=== PATIENT | male | born 1945 | race Caucasian/White ===

== ENCOUNTER 2024-01-18 00:37 | Inpatient (IN) | payer MEDICAID ==
[2024-01-18] VITALS (38 sets, daily range): BP systolic 96–140; BP diastolic 44–69; PULSE 67–136; RESP 20–22; TEMP 98.2–98.4
[~2024-01-18] VITALS: Ht 167.6 cm; Wt 72.6 kg
[~2024-01-18 00:37] MED LIST: ASPI-1497 MT; CLOP-31 MT; COR3 MT; FURO-151 MT; LINA5TAB MT; LIP40 MT; LOSA1TAB37 MT; METF-414 PO; TAMS-11 PO
[2024-01-18] MEDS: NOREPINEPHRINE 8MG/250ML PMX 250 ML IV PRN (01:12)
[2024-01-18] MEDS ORDERED: FENTANYL 2500MCG/250ML PMX 250 ML IV ONE (01:15)
[2024-01-18] MEDS ORDERED: MIDAZOLAM 100MG/100ML PMX 100 ML IV PRN (01:15)
[2024-01-18 01:18] LABS: HEMATOCRIT. 44.8 % (42.0-52.0); HEMOGLOBIN. 14.6 g/dL (14.0-18.0); MEAN CORPUSCULAR HEMOGLOBIN 29.9 pg (28.0-32.0); MEAN CORPUSCULAR HGB CONC 32.7 g/dL (31.0-37.0); MEAN CORPUSCULAR VOLUME 91.6 fL (80.0-94.0); MEAN PLATELET VOLUME 9.5 fl (7.4-10.4); PLATELET 157 x1000/uL (130-400); RED BLOOD CELL COUNT 4.89 mill/uL (4.7-6.1); RED CELL DISTRIBUTION WIDTH 15.2 % (11.6-14.6); WHITE BLOOD COUNT 16.7 x1000/uL (4.5-11.0)
[2024-01-18 01:20] LABS: CHLORIDE 106 mEq/L (98-107); POTASSIUM 3.4 mEq/L (3.5-5.1); SODIUM 142 mEq/L (136-145)
[2024-01-18 01:21] LABS: CALCIUM 9.6 mg/dL (8.7-10.4); CARBON DIOXIDE 27 mEq/L (21-32)
[2024-01-18] MEDS: FENTANYL CITRATE 2,500 MCG in SODIUM CHLORIDE 0.9% 200 ML IV PRN (01:24)
[2024-01-18 01:26] LABS: GLUCOSE 233 mg/dL (70-105); UREA NITROGEN BLOOD 25 mg/dL (9-23)
[2024-01-18 01:27] LABS: TROPONIN I HIGH SENSITIVITY 6 ng/L (3.0-53)
[2024-01-18 01:28] LABS: ALANINE AMINOTRANSFERASE 89 IU/L (10-49); ALBUMIN 4.3 g/dL (3.2-4.8); ASPARTATE AMINOTRANSFERASE 94 IU/L (<34); BILIRUBIN TOTAL 0.8 mg/dL (0.1-1.0)
[2024-01-18 01:33] LABS: CREATININE 1.9 mg/dL (0.6-1.3)
[2024-01-18] MEDS: MIDAZOLAM 100MG/100ML PMX 100 ML IV PRN (01:45)
[2024-01-18 01:47] LABS: DIFFERENTIAL COMMENT 1
[2024-01-18 02:29] LABS: PLATELET ESTIMATE NORMAL
[2024-01-18] MEDS ORDERED: CEFEPIME 2GM IN DEXT 5% 100ML IV NR (02:30)
[2024-01-18] MEDS: VANCOMYCIN 1G PREMIX 200 ML IV SCH ×2 (02:35→06:22)
[2024-01-18 03:11] LABS: BG BASE EXCESS -5.5 mmol/L (-2.0-2.0); BG CARBOXYHEMOGLOBIN 0.1 % (0.5-1.5); BG DEOXYHEMOGLOBIN 0.2 % (0.0-5.0); BG FRACTION INSPIRED OXYGEN 100; BG HCO3 ACT 22.5 mmol/L (22.0-26.0); BG METHEMOGLOBIN 0.6 % (0.0-1.5); BG OXYGEN SATURATION 99.8 % (92.0-98.5); BG OXYHEMOGLOBIN 99.1 % (94.0-97.0); BG PCO2 53.8 mmHg (35.0-45.0); BG PO2 501.2 mmHg (75.0-100.0); BG SAMPLE SITE RIGHT RADIAL; BG TOTAL HEMOGLOBIN 15.5 g/dL (12.0-18.0); BG VENT MODE VENT - AC
[2024-01-18] MEDS: CEFEPIME 2GM/100ML 100 ML IV NR (05:07)
[2024-01-18] MEDS ORDERED: ACETAMINOPHEN 650MG/20.3ML UDC GT PRN ×2 (06:15)
[2024-01-18] MEDS ORDERED: CLONIDINE 0.1MG TABLET PO PRN (06:15)
[2024-01-18] MEDS ORDERED: ONDANSETRON HCL 4MG/2ML INJ IV PRN (06:15)
[2024-01-18] MEDS ORDERED: IPRATROPIUM/ALBUTEROL 0.5-3(2.5)MG/3ML NEB HHN PRN (06:15)
[2024-01-18 06:49] LABS: BG BASE EXCESS -2.7 mmol/L (-2.0-2.0); BG CARBOXYHEMOGLOBIN 0.3 % (0.5-1.5); BG DEOXYHEMOGLOBIN 1.4 % (0.0-5.0); BG FRACTION INSPIRED OXYGEN 40; BG HCO3 ACT 21.8 mmol/L (22.0-26.0); BG METHEMOGLOBIN 0.5 % (0.0-1.5); BG OXYGEN SATURATION 98.6 % (92.0-98.5); BG OXYHEMOGLOBIN 97.8 % (94.0-97.0); BG PCO2 37.1 mmHg (35.0-45.0); BG PH 7.387 (7.350-7.450); BG PO2 118.1 mmHg (75.0-100.0); BG SAMPLE SITE RIGHT RADIAL; BG TOTAL HEMOGLOBIN 14.9 g/dL (12.0-18.0); BG VENT MODE VENT - AC
[2024-01-18] MEDS: PIPERACILLIN/TAZO 3.375G/50ML 50 ML IV SCH (08:20)
[2024-01-18] MEDS: PANTOPRAZOLE SODIUM 40 MG/VIAL IV SCH (09:24)
[2024-01-18 10:50] LABS: CREATINE KINASE 74 IU/L (46-171)
[2024-01-18 11:25] LABS: TRIGLYCERIDE 138 mg/dL (0-150)
[2024-01-18 11:26] LABS: LDL CHOLESTEROL 54 mg/dL (5-100)
[2024-01-18 11:27] LABS: CHOLESTEROL 100 mg/dL (<200); HDL CHOLESTEROL 34 mg/dL (>55); PHOSPHORUS 2.8 mg/dL (2.5-4.9)
[2024-01-18 12:08] LABS: CLARITY URINE CLEAR (CLEAR); COLOR URINE YELLOW (YELLOW); GLUCOSE URINE NEGATIVE (NEGATIVE); KETONES URINE NEGATIVE (NEGATIVE); LEUKOCYTE ESTERASE URINE NEGATIVE (NEGATIVE); NITRITE URINE NEGATIVE (NEGATIVE); OCCULT BLOOD URINE NEGATIVE (NEGATIVE); PH URINE 5.5 (4.5-8.0); PROTEIN URINE 1+ (NEGATIVE); SPECIFIC GRAVITY URINE 1.011 (1.005-1.030); UROBILINOGEN URINE 0.2 E.U./dL (0.2-1.0)
[2024-01-18 12:22] LABS: COARSE GRANULAR CASTS URINE 0-5 /lpf; HYALINE CASTS URINE 0-5 /lpf; SQUAMOUS EPITHELIAL CELL URINE RARE /lpf (RARE/1+)
[2024-01-18 12:23] LABS: WBC URINE 0-2 /hpf (0-2)
[2024-01-18 12:24] LABS: BACTERIA URINE TRACE; RBC URINE 0-2 /hpf (0-2)
[2024-01-18] MEDS: ASPIRIN 81MG TABLET NG SCH (12:32)
[2024-01-18] MEDS: CLOPIDOGREL 75MG TABLET PO SCH (12:32)
[2024-01-18 12:58] LABS: HEPATITIS B SURFACE ANTIGEN NEGATIVE (Negative)
[2024-01-18 13:18] LABS: HEPATITIS A AB IGM NEGATIVE (Negative)
[2024-01-18 13:19] LABS: HEPATITIS B CORE AB IGM NEGATIVE (Negative)
[2024-01-18 13:20] LABS: HEPATITIS C AB NON REACTIVE (Neg) (Negative)
[2024-01-18 14:00] LABS: *AMPHETAMINES SCREEN URINE NEGATIVE (NEGATIVE); *BARBITURATES SCREEN URINE NEGATIVE (NEGATIVE); *BENZODIAZEPINES SCREEN URINE PRESUMPTIVE POSITIVE (NEGATIVE); *COCAINE SCREEN URINE NEGATIVE (NEGATIVE)
[2024-01-18 14:01] LABS: CANNABINOID URINE SCREEN NEGATIVE (NEGATIVE); ECSTASY MDMA SCREEN URINE NEGATIVE (NEGATIVE); METHADONE URINE SCREEN NEGATIVE (NEGATIVE); OPIATES URINE SCREEN NEGATIVE (NEGATIVE); PHENCYCLIDINE URINE SCREEN NEGATIVE (NEGATIVE)
[2024-01-18] MEDS: MAGNESIUM 1 G PREMIX 100 ML IV NR (15:03)
[2024-01-18] MEDS: TAMSULOSIN HCL 0.4MG SR CAPSULE PO SCH (15:03)
[2024-01-18] MEDS ORDERED: DEXTROSE 50% WATER 50ML SYRINGE IV PRN (16:30)
[2024-01-18] MEDS: INSULIN LISPRO 100 UNITS/ML SUBCUT SCH (17:20)
[2024-01-18] MEDS: BLOOD SUGAR DIAGNOSTIC STRIP TEST SCH (17:20)
[2024-01-18] MEDS: IPRATROPIUM/ALBUTEROL 0.5-3(2.5)MG/3ML NEB HHN SCH (17:56)
[2024-01-18 18:26] LABS: POTASSIUM 3.3 mEq/L (3.5-5.1)
[2024-01-18 18:28] LABS: CALCIUM 9.1 mg/dL (8.7-10.4)
[2024-01-18 18:33] LABS: CREATININE 1.3 mg/dL (0.6-1.3)
[2024-01-18 18:39] LABS: T4 FREE 0.98 ng/dL (0.89-1.76); THYROID STIMULATING HORMONE 0.99 uIU/mL (0.55-4.78)
[2024-01-18] MEDS ORDERED: POTASSIUM CHLORIDE 20 MEQ in DEXT 5% WATER 90 ML IV ONE (19:15)
[2024-01-18] MEDS: KCL 20MEQ/100ML PREMIX 100 ML IV NR (21:36)
[2024-01-19] VITALS (103 sets, daily range): BP systolic 85–133; BP diastolic 25–74; PULSE 70–97; RESP 8–24; TEMP 97.5–98.4; O2SAT 99–100
[2024-01-19] MEDS ORDERED: VANCOMYCIN 750MG/150ML IV SCH (02:00)
[2024-01-19 04:56] LABS: BASOPHILS % 0.6 % (0.0-2.0); EOSINOPHILS % 3.5 % (0.0-5.0); HEMATOCRIT. 38.5 % (42.0-52.0); HEMOGLOBIN. 13.2 g/dL (14.0-18.0); LYMPHOCYTES % 12.1 % (20.0-50.0); MEAN CORPUSCULAR HEMOGLOBIN 29.9 pg (28.0-32.0); MEAN CORPUSCULAR HGB CONC 34.2 g/dL (31.0-37.0); MEAN CORPUSCULAR VOLUME 87.5 fL (80.0-94.0); MEAN PLATELET VOLUME 8.9 fl (7.4-10.4); NEUTROPHILS % 69.8 % (40.0-76.0); PLATELET 124 x1000/uL (130-400); RED CELL DISTRIBUTION WIDTH 14.4 % (11.6-14.6); WHITE BLOOD COUNT 8.9 x1000/uL (4.5-11.0)
[2024-01-19 05:04] LABS: POTASSIUM 3.4 mEq/L (3.5-5.1)
[2024-01-19 05:05] LABS: CALCIUM 9.2 mg/dL (8.7-10.4)
[2024-01-19 05:10] LABS: CREATININE 1.2 mg/dL (0.6-1.3)
[2024-01-19 08:08] LABS: ANTI-NUCLEAR ANTIBODIES DIRECT Negative (Negative); COMPLEMENT C3 114 mg/dL (82-167); COMPLEMENT C4 26 mg/dL (12-38)
[2024-01-19] MEDS: POTASSIUM CHLORIDE 20MEQ/PACKET PO NR (08:20)
[2024-01-19] MEDS: PIPERACILLIN/TAZO 3.375G/50ML 50 ML IV SCH ×2 (08:20→14:08)
[2024-01-19] MEDS: VANCOMYCIN 750MG/150ML IV SCH (10:23)
[2024-01-19 10:32] LABS: BG BASE EXCESS 3.4 mmol/L (-2.0-2.0); BG CARBOXYHEMOGLOBIN 0.1 % (0.5-1.5); BG DEOXYHEMOGLOBIN 2.4 % (0.0-5.0); BG FRACTION INSPIRED OXYGEN 40; BG HCO3 ACT 27.4 mmol/L (22.0-26.0); BG METHEMOGLOBIN 0.3 % (0.0-1.5); BG OXYGEN SATURATION 97.6 % (92.0-98.5); BG OXYHEMOGLOBIN 97.2 % (94.0-97.0); BG PCO2 39.4 mmHg (35.0-45.0); BG PO2 94.4 mmHg (75.0-100.0); BG SAMPLE SITE RIGHT RADIAL; BG TOTAL HEMOGLOBIN 13.7 g/dL (12.0-18.0); BG VENT MODE VENT - AC
[2024-01-19 12:29] LABS: BG BASE EXCESS 3.9 mmol/L (-2.0-2.0); BG CARBOXYHEMOGLOBIN 0.2 % (0.5-1.5); BG FRACTION INSPIRED OXYGEN 40; BG HCO3 ACT 28.2 mmol/L (22.0-26.0); BG METHEMOGLOBIN 0.4 % (0.0-1.5); BG OXYHEMOGLOBIN 97.4 % (94.0-97.0); BG PCO2 41.3 mmHg (35.0-45.0); BG PH 7.452 (7.350-7.450); BG PO2 104.6 mmHg (75.0-100.0); BG SAMPLE SITE RIGHT RADIAL; BG TOTAL RESPIRATORY RATE 18 b/min; BG VENT MODE VENT - CPAP
[2024-01-19 15:43] LABS: BG BASE EXCESS 4.1 mmol/L (-2.0-2.0); BG CARBOXYHEMOGLOBIN 0.3 % (0.5-1.5); BG DEOXYHEMOGLOBIN 2.9 % (0.0-5.0); BG FRACTION INSPIRED OXYGEN 36; BG HCO3 ACT 28.9 mmol/L (22.0-26.0); BG METHEMOGLOBIN 0.4 % (0.0-1.5); BG OXYGEN SATURATION 97.1 % (92.0-98.5); BG OXYHEMOGLOBIN 96.4 % (94.0-97.0); BG PCO2 43.9 mmHg (35.0-45.0); BG PH 7.436 (7.350-7.450); BG PO2 91.3 mmHg (75.0-100.0); BG SAMPLE SITE RIGHT RADIAL; BG TOTAL HEMOGLOBIN 13.7 g/dL (12.0-18.0); BG VENT MODE NASAL CANNULA
[2024-01-20] VITALS (47 sets, daily range): BP systolic 75–114; BP diastolic 40–75; PULSE 63–94; RESP 9–24; TEMP 96.8–98.2; O2SAT 96–98
[2024-01-20 04:44] LABS: CARBON DIOXIDE 31 mEq/L (21-32); CHLORIDE 106 mEq/L (98-107); POTASSIUM 3.3 mEq/L (3.5-5.1); SODIUM 142 mEq/L (136-145)
[2024-01-20 04:50] LABS: GLUCOSE 145 mg/dL (70-105); UREA NITROGEN BLOOD 13 mg/dL (9-23)
[2024-01-20] MEDS: POTASSIUM CHLORIDE 20MEQ TABLET SR PO NR (09:45)
[2024-01-21] VITALS (18 sets, daily range): BP systolic 93–223; BP diastolic 42–99; PULSE 62–147; RESP 18–37; TEMP 97.3–98.8; O2SAT 96–98
[2024-01-21 06:45] LABS: HEMATOCRIT. 36.3 % (42.0-52.0); HEMOGLOBIN. 12.4 g/dL (14.0-18.0); MEAN CORPUSCULAR HEMOGLOBIN 29.6 pg (28.0-32.0); MEAN CORPUSCULAR HGB CONC 34.2 g/dL (31.0-37.0); MEAN CORPUSCULAR VOLUME 86.6 fL (80.0-94.0); MEAN PLATELET VOLUME 9.1 fl (7.4-10.4); PLATELET 122 x1000/uL (130-400); RED BLOOD CELL COUNT 4.19 mill/uL (4.7-6.1); RED CELL DISTRIBUTION WIDTH 14.2 % (11.6-14.6); WHITE BLOOD COUNT 7.4 x1000/uL (4.5-11.0)
[2024-01-21 07:01] LABS: CALCIUM 8.8 mg/dL (8.7-10.4); CARBON DIOXIDE 28 mEq/L (21-32); CHLORIDE 107 mEq/L (98-107); POTASSIUM 3.6 mEq/L (3.5-5.1); SODIUM 141 mEq/L (136-145)
[2024-01-21 07:06] LABS: CREATININE 0.8 mg/dL (0.6-1.3)
[2024-01-21 07:07] LABS: GLUCOSE 125 mg/dL (70-105); UREA NITROGEN BLOOD 12 mg/dL (9-23)
[2024-01-21] MEDS: DOCUSATE SODIUM 100MG CAPSULE PO PRN (07:08)
[2024-01-21 07:09] LABS: PHOSPHORUS 3.4 mg/dL (2.5-4.9)
[2024-01-21 07:20] LABS: DIFFERENTIAL COMMENT 1
[2024-01-21] MEDS: POTASSIUM CHLORIDE 20MEQ TABLET SR PO NR (11:51)
[2024-01-21 12:19] LABS: AMMONIA < 17 uMol/L (<32)
[2024-01-21] MEDS: MAGNESIUM 1 G PREMIX 100 ML IV SCH (13:42)
[2024-01-21] MEDS ORDERED: AMOX1TAB16 MT (19:11)
[2024-01-21 22:16] LABS: BG CARBOXYHEMOGLOBIN 0.4 % (0.5-1.5); BG DEOXYHEMOGLOBIN 10.6 % (0.0-5.0); BG FRACTION INSPIRED OXYGEN 36; BG METHEMOGLOBIN 0.4 % (0.0-1.5); BG OXYGEN SATURATION 89.3 % (92.0-98.5); BG OXYHEMOGLOBIN 88.6 % (94.0-97.0); BG PCO2 87.8 mmHg (35.0-45.0); BG PH 7.105 (7.350-7.450); BG PO2 73.5 mmHg (75.0-100.0); BG SAMPLE SITE RIGHT RADIAL; BG TOTAL HEMOGLOBIN 14.5 g/dL (12.0-18.0); BG VENT MODE NASAL CANNULA
[2024-01-21] MEDS: FUROSEMIDE 40MG/4ML VIAL IVP SCH (22:49)
[2024-01-21] MEDS: DIGOXIN 500MCG/2ML AMP IV NR (22:49)
[2024-01-21] MEDS: DILTIAZEM HCL 125 MG in DEXT 5% WATER 100 ML IV PRN (22:58)
[2024-01-21 23:15] LABS: PLATELET ESTIMATE SLIGHTLY DECREASED
[2024-01-22] VITALS (83 sets, daily range): BP systolic 74–193; BP diastolic 47–105; PULSE 59–127; RESP 13–30; TEMP 97.7–99.8
[2024-01-22 00:09] LABS: CREATINE KINASE 101 IU/L (46-171)
[2024-01-22 00:10] LABS: CREATINE KINASE MB FRACTION 2.7 ng/mL (0.5-3.6); TROPONIN I HIGH SENSITIVITY 39 ng/L (3.0-53)
[2024-01-22 00:26] LABS: BG BASE EXCESS -6.1 mmol/L (-2.0-2.0); BG CARBOXYHEMOGLOBIN 0.3 % (0.5-1.5); BG DEOXYHEMOGLOBIN 1.6 % (0.0-5.0); BG HCO3 ACT 27.2 mmol/L (22.0-26.0); BG METHEMOGLOBIN 0.3 % (0.0-1.5); BG OXYGEN SATURATION 98.4 % (92.0-98.5); BG OXYHEMOGLOBIN 97.8 % (94.0-97.0); BG PH 7.053 (7.350-7.450); BG PO2 171.2 mmHg (75.0-100.0)
[2024-01-22] MEDS ORDERED: PROPOFOL 10MG/ML 100ML 100 ML IV PRN (02:15)
[2024-01-22] MEDS: NOREPINEPHRINE 8MG/250ML PMX 250 ML IV PRN (02:48)
[2024-01-22 03:09] LABS: BG BASE EXCESS -2.3 mmol/L (-2.0-2.0); BG CARBOXYHEMOGLOBIN 0.3 % (0.5-1.5); BG DEOXYHEMOGLOBIN 0.4 % (0.0-5.0); BG FRACTION INSPIRED OXYGEN 100; BG HCO3 ACT 24.6 mmol/L (22.0-26.0); BG METHEMOGLOBIN 0.3 % (0.0-1.5); BG OXYGEN SATURATION 99.6 % (92.0-98.5); BG PCO2 50.3 mmHg (35.0-45.0); BG PH 7.307 (7.350-7.450); BG PO2 426.8 mmHg (75.0-100.0); BG SAMPLE SITE RIGHT RADIAL; BG TOTAL HEMOGLOBIN 14.1 g/dL (12.0-18.0); BG VENT MODE VENT - AC
[2024-01-22] MEDS: PROPOFOL 10MG/ML 100ML 100 ML IV PRN (03:10)
[2024-01-22 05:57] LABS: CARBON DIOXIDE 24 mEq/L (21-32); CHLORIDE 105 mEq/L (98-107); SODIUM 136 mEq/L (136-145)
[2024-01-22 06:03] LABS: GLUCOSE 217 mg/dL (70-105)
[2024-01-22 06:04] LABS: UREA NITROGEN BLOOD 16 mg/dL (9-23)
[2024-01-22 06:09] LABS: CREATININE 1.4 mg/dL (0.6-1.3); POTASSIUM 5.8 mEq/L (3.5-5.1)
[2024-01-22] MEDS: INSULIN REGULAR (HUMULIN R) 300UNITS/3ML VIAL IV NR (07:15)
[2024-01-22] MEDS: SODIUM BICARBONATE 8.4% 1 MEQ/ML 50ML SYR IV NR (08:14)
[2024-01-22] MEDS: DEXTROSE 50% WATER 50ML SYRINGE IV NR (08:14)
[2024-01-22 08:34] LABS: BG BASE EXCESS -1.4 mmol/L (-2.0-2.0); BG CARBOXYHEMOGLOBIN 0.3 % (0.5-1.5); BG FRACTION INSPIRED OXYGEN 50; BG HCO3 ACT 21.6 mmol/L (22.0-26.0); BG METHEMOGLOBIN 0.1 % (0.0-1.5); BG OXYHEMOGLOBIN 98.6 % (94.0-97.0); BG PCO2 31.7 mmHg (35.0-45.0); BG PH 7.452 (7.350-7.450); BG PO2 192.8 mmHg (75.0-100.0); BG SAMPLE SITE LEFT RADIAL; BG TOTAL HEMOGLOBIN 13.7 g/dL (12.0-18.0); BG VENT MODE VENT - AC
[2024-01-22] MEDS: FAMOTIDINE 20MG/2ML VIAL IV SCH (09:00)
[2024-01-22] MEDS ORDERED: METOPROLOL TARTRATE 25MG TABLET PO SCH (09:00)
[2024-01-22] MEDS ORDERED: SODIUM POLYSTYRENE SULFONATE 15 G/60 ML BOT PO NR (09:45)
[2024-01-22 12:36] LABS: POTASSIUM 4.2 mEq/L (3.5-5.1)
[2024-01-22 17:40] LABS: HEMATOCRIT. 39.7 % (42.0-52.0); HEMOGLOBIN. 13.5 g/dL (14.0-18.0); MEAN CORPUSCULAR HEMOGLOBIN 30.2 pg (28.0-32.0); MEAN CORPUSCULAR HGB CONC 33.9 g/dL (31.0-37.0); MEAN CORPUSCULAR VOLUME 88.9 fL (80.0-94.0); MEAN PLATELET VOLUME 9.3 fl (7.4-10.4); PLATELET 137 x1000/uL (130-400); RED BLOOD CELL COUNT 4.46 mill/uL (4.7-6.1); RED CELL DISTRIBUTION WIDTH 14.6 % (11.6-14.6); WHITE BLOOD COUNT 10.2 x1000/uL (4.5-11.0)
[2024-01-22 17:41] LABS: DIFFERENTIAL COMMENT 1
[2024-01-22] MEDS: DIGOXIN 250MCG TABLET PO SCH (17:56)
[2024-01-22] MEDS: MUPIROCIN 2% OINT 15GM NS SCH (20:13)
[2024-01-22 20:53] LABS: PLATELET ESTIMATE NORMAL
[2024-01-22] MEDS ORDERED: BACITRACIN 14GM TUBE TOP SCH (21:00)
[2024-01-23] VITALS (90 sets, daily range): BP systolic 93–144; BP diastolic 40–94; PULSE 77–107; RESP 5–26; TEMP 96.7–99.5; O2SAT 100
[2024-01-23] MEDS ORDERED: PROPOFOL 10MG/ML 100ML 100 ML IV PRN (06:15)
[2024-01-23 06:21] LABS: HEMATOCRIT. 36.1 % (42.0-52.0); HEMOGLOBIN. 12.3 g/dL (14.0-18.0); MEAN CORPUSCULAR HEMOGLOBIN 29.6 pg (28.0-32.0); MEAN CORPUSCULAR HGB CONC 34.1 g/dL (31.0-37.0); MEAN CORPUSCULAR VOLUME 86.6 fL (80.0-94.0); PLATELET 126 x1000/uL (130-400); RED BLOOD CELL COUNT 4.17 mill/uL (4.7-6.1); WHITE BLOOD COUNT 7.2 x1000/uL (4.5-11.0)
[2024-01-23 06:26] LABS: POTASSIUM 3.8 mEq/L (3.5-5.1)
[2024-01-23 06:32] LABS: CREATININE 1.2 mg/dL (0.6-1.3)
[2024-01-23 06:39] LABS: DIFFERENTIAL COMMENT 1
[2024-01-23 10:07] LABS: BG BASE EXCESS 2.9 mmol/L (-2.0-2.0); BG CARBOXYHEMOGLOBIN 0.3 % (0.5-1.5); BG DEOXYHEMOGLOBIN 1.1 % (0.0-5.0); BG FRACTION INSPIRED OXYGEN 30; BG HCO3 ACT 27.7 mmol/L (22.0-26.0); BG METHEMOGLOBIN 0.6 % (0.0-1.5); BG OXYGEN SATURATION 98.9 % (92.0-98.5); BG PCO2 43.5 mmHg (35.0-45.0); BG PH 7.422 (7.350-7.450); BG PO2 156.4 mmHg (75.0-100.0); BG SAMPLE SITE RIGHT RADIAL; BG TOTAL HEMOGLOBIN 12.4 g/dL (12.0-18.0); BG VENT MODE VENT - AC
[2024-01-23 10:43] LABS: PLATELET ESTIMATE NORMAL
[2024-01-23] MEDS: PANTOPRAZOLE SODIUM 40 MG/VIAL IV SCH (13:38)
[2024-01-23] MEDS: ENOXAPARIN 80MG/0.8ML SYR SUBCUT NR (13:39)
[2024-01-23 13:49] LABS: BG CARBOXYHEMOGLOBIN 0.3 % (0.5-1.5); BG DEOXYHEMOGLOBIN 3.3 % (0.0-5.0); BG FRACTION INSPIRED OXYGEN 30; BG HCO3 ACT 26.9 mmol/L (22.0-26.0); BG METHEMOGLOBIN 0.5 % (0.0-1.5); BG OXYGEN SATURATION 96.7 % (92.0-98.5); BG OXYHEMOGLOBIN 95.9 % (94.0-97.0); BG PCO2 38.6 mmHg (35.0-45.0); BG PH 7.461 (7.350-7.450); BG PO2 86.1 mmHg (75.0-100.0); BG SAMPLE SITE RIGHT RADIAL; BG TOTAL HEMOGLOBIN 13.7 g/dL (12.0-18.0); BG VENT MODE VENT - CPAP
[2024-01-23 15:57] LABS: PROTHROMBIN TIME 11.3 sec (9.6-11.0)
[2024-01-23] MEDS: ENOXAPARIN 80MG/0.8ML SYR SUBCUT SCH (22:00)
[2024-01-24] VITALS (85 sets, daily range): BP systolic 81–146; BP diastolic 34–98; PULSE 71–101; RESP 8–24; TEMP 98.4–99.1
[2024-01-24 05:49] LABS: HEMATOCRIT. 36.4 % (42.0-52.0); HEMOGLOBIN. 12.1 g/dL (14.0-18.0); MEAN CORPUSCULAR HEMOGLOBIN 29.4 pg (28.0-32.0); MEAN CORPUSCULAR HGB CONC 33.2 g/dL (31.0-37.0); MEAN CORPUSCULAR VOLUME 88.6 fL (80.0-94.0); MEAN PLATELET VOLUME 8.8 fl (7.4-10.4); PLATELET 150 x1000/uL (130-400); RED BLOOD CELL COUNT 4.11 mill/uL (4.7-6.1); RED CELL DISTRIBUTION WIDTH 14.5 % (11.6-14.6); WHITE BLOOD COUNT 7.4 x1000/uL (4.5-11.0)
[2024-01-24 05:56] LABS: CALCIUM 9.2 mg/dL (8.7-10.4)
[2024-01-24 06:00] LABS: CREATININE 1.4 mg/dL (0.6-1.3)
[2024-01-24 06:03] LABS: DIGOXIN 1.3 ng/mL (0.8-2.0)
[2024-01-24 06:51] LABS: DIFFERENTIAL COMMENT 1
[2024-01-24 17:37] LABS: HEPATITIS B SURFACE ANTIGEN NEGATIVE
[2024-01-24 17:39] LABS: HEPATITIS C VIR.AB < 0.02 INDEXVAL (0.00-0.80)
[2024-01-24 18:21] LABS: PLATELET ESTIMATE NORMAL
[2024-01-24] MEDS: MAGNESIUM/ALUMINUM HYDROXIDE/SIMETHICONE 30ML UDC PO NR (19:10)
[2024-01-25] VITALS (41 sets, daily range): BP systolic 87–145; BP diastolic 38–96; PULSE 65–90; RESP 12–19; TEMP 97.2–101.4; O2SAT 92
[2024-01-25 05:44] LABS: HEMATOCRIT. 36.4 % (42.0-52.0); HEMOGLOBIN. 12.4 g/dL (14.0-18.0); MEAN CORPUSCULAR VOLUME 88.1 fL (80.0-94.0); MEAN PLATELET VOLUME 8.7 fl (7.4-10.4); PLATELET 177 x1000/uL (130-400); RED BLOOD CELL COUNT 4.13 mill/uL (4.7-6.1); RED CELL DISTRIBUTION WIDTH 14.2 % (11.6-14.6); WHITE BLOOD COUNT 6.9 x1000/uL (4.5-11.0)
[2024-01-25 05:50] LABS: DIFFERENTIAL COMMENT 1
[2024-01-25 05:54] LABS: CALCIUM 9.3 mg/dL (8.7-10.4); CARBON DIOXIDE 31 mEq/L (21-32); CHLORIDE 105 mEq/L (98-107); POTASSIUM 3.9 mEq/L (3.5-5.1); SODIUM 144 mEq/L (136-145)
[2024-01-25 05:59] LABS: CREATININE 1.3 mg/dL (0.6-1.3); GLUCOSE 112 mg/dL (70-105)
[2024-01-25 06:00] LABS: UREA NITROGEN BLOOD 22 mg/dL (9-23)
[2024-01-25 06:02] LABS: PHOSPHORUS 3.1 mg/dL (2.5-4.9)
[2024-01-25] MEDS: FAMOTIDINE 20MG/2ML VIAL IV SCH (08:05)
[2024-01-25 09:18] LABS: BG DEOXYHEMOGLOBIN 7.5 % (0.0-5.0); BG FRACTION INSPIRED OXYGEN 21; BG HCO3 ACT 31.8 mmol/L (22.0-26.0); BG METHEMOGLOBIN 0.3 % (0.0-1.5); BG OXYGEN SATURATION 92.4 % (92.0-98.5); BG OXYHEMOGLOBIN 91.2 % (94.0-97.0); BG PCO2 45.6 mmHg (35.0-45.0); BG PH 7.462 (7.350-7.450); BG PO2 58.6 mmHg (75.0-100.0); BG SAMPLE SITE RIGHT BRACHIAL; BG TOTAL HEMOGLOBIN 14.1 g/dL (12.0-18.0); BG VENT MODE ROOM AIR
[2024-01-25 16:15] LABS: PLATELET ESTIMATE NORMAL
[2024-01-26] VITALS: BP 136/57; PULSE 75; RESP 18; TEMP 97.2
[2024-01-26 04:00] VITALS: BP 123/49; PULSE 74; RESP 18; TEMP 97.1
[2024-01-26 08:00] VITALS: BP 121/51; PULSE 66; RESP 18; TEMP 98.1
[2024-01-26 08:22] LABS: HEMATOCRIT. 35.5 % (42.0-52.0); HEMOGLOBIN. 12.1 g/dL (14.0-18.0); MEAN CORPUSCULAR HEMOGLOBIN 29.5 pg (28.0-32.0); MEAN CORPUSCULAR VOLUME 86.9 fL (80.0-94.0); MEAN PLATELET VOLUME 8.3 fl (7.4-10.4); PLATELET 180 x1000/uL (130-400); RED BLOOD CELL COUNT 4.09 mill/uL (4.7-6.1); RED CELL DISTRIBUTION WIDTH 13.9 % (11.6-14.6); WHITE BLOOD COUNT 6.6 x1000/uL (4.5-11.0)
[2024-01-26 08:27] LABS: POTASSIUM 3.8 mEq/L (3.5-5.1)
[2024-01-26 08:33] LABS: CREATININE 1.2 mg/dL (0.6-1.3)
[2024-01-26] MEDS: ENOXAPARIN 40MG/0.4ML SYR SUBCUT SCH (09:16)
[2024-01-26] MEDS: CLOPIDOGREL 75MG TABLET PO SCH (09:16)
[2024-01-26 09:28] LABS: DIFFERENTIAL COMMENT 1
[2024-01-26 12:00] VITALS: BP 118/52; PULSE 68; RESP 20; TEMP 97.9
[2024-01-26 16:00] VITALS: BP 112/58; PULSE 74; RESP 20; TEMP 97.9
[2024-01-26 20:00] VITALS: BP 125/51; PULSE 77; RESP 18; TEMP 97.5
[2024-01-26 20:43] LABS: PLATELET ESTIMATE NORMAL
[2024-01-27] VITALS: BP 128/47; PULSE 83; RESP 18; TEMP 97.7
[2024-01-27 04:00] VITALS: BP 104/50; PULSE 74; RESP 18; TEMP 97.5
[2024-01-27 08:00] VITALS: BP 127/49; PULSE 78; RESP 18; TEMP 97
[2024-01-27 12:00] VITALS: BP_SYST 118; BP_SYST 123; BP_DIAS 47; BP_DIAS 54; PULSE 63; PULSE 79; RESP 18; RESP 20; TEMP 97.4; TEMP 97.9
[2024-01-27 14:15] VITALS: BP 129/65; PULSE 75; TEMP 97.8; O2SAT 98
[2024-01-27 16:00] VITALS: BP 123/47; PULSE 79; RESP 18; TEMP 97.9
== END 2024-01-27 18:38 | disposition home health service (06) | DRG 208 ==
LOC: ER 00:37 → CVICU 02:23 → 7WST 01-20 18:08 → CVICU 01-21 22:30 → 7WST 01-25 15:38
PROVIDERS: ADMIT Family Medicine Adult Medicine; ATTEND Family Medicine Adult Medicine
PROC: 5A1945Z Respiratory Ventilation, 24-96 Consecutive Hours (ICD-10-PCS; principal; 2024-01-18)
PROC: 0BH18EZ Insertion of Endotracheal Airway into Trachea, Via Natural or Artificial Opening Endoscopic (ICD-10-PCS; 2024-01-18)
PROC: 5A12012 Performance of Cardiac Output, Single, Manual (ICD-10-PCS; 2024-01-18)
PROC: 06HY33Z Insertion of Infusion Device into Lower Vein, Percutaneous Approach (ICD-10-PCS; 2024-01-18)
PROC: B54CZZA Ultrasonography of Left Lower Extremity Veins, Guidance (ICD-10-PCS; 2024-01-18)
PROC: 4A00X4Z Measurement of Central Nervous Electrical Activity, External Approach (ICD-10-PCS; 2024-01-19)
PROC: 5A09357 Assistance with Respiratory Ventilation, Less than 24 Consecutive Hours, Continuous Positive Airway Pressure (ICD-10-PCS; 2024-01-21)
PROC: 5A1945Z Respiratory Ventilation, 24-96 Consecutive Hours (ICD-10-PCS; 2024-01-22)
PROC: 0BH17EZ Insertion of Endotracheal Airway into Trachea, Via Natural or Artificial Opening (ICD-10-PCS; 2024-01-22)
PROC: 5A09357 Assistance with Respiratory Ventilation, Less than 24 Consecutive Hours, Continuous Positive Airway Pressure (ICD-10-PCS; 2024-01-22)
DX: J96.01 Acute respiratory failure with hypoxia (principal); I46.9 Cardiac arrest, cause unspecified; N17.0 Acute kidney failure with tubular necrosis; J69.0 Pneumonitis due to inhalation of food and vomit; J15.212 Pneumonia due to Methicillin resistant Staphylococcus aureus; I50.23 Acute on chronic systolic (congestive) heart failure; I21.4 Non-ST elevation (NSTEMI) myocardial infarction; I13.0 Hypertensive heart and chronic kidney disease with heart failure and stage 1 through stage 4 chronic kidney disease, or unspecified chronic kidney disease; I67.82 Cerebral ischemia; N13.30 Unspecified hydronephrosis; J96.02 Acute respiratory failure with hypercapnia; E11.65 Type 2 diabetes mellitus with hyperglycemia; C61 Malignant neoplasm of prostate; E11.22 Type 2 diabetes mellitus with diabetic chronic kidney disease; E83.42 Hypomagnesemia; E87.6 Hypokalemia; N18.1 Chronic kidney disease, stage 1; N40.0 Benign prostatic hyperplasia without lower urinary tract symptoms; I48.91 Unspecified atrial fibrillation; I25.10 Atherosclerotic heart disease of native coronary artery without angina pectoris; E87.5 Hyperkalemia; Z79.82 Long term (current) use of aspirin; Z79.02 Long term (current) use of antithrombotics/antiplatelets
CPT/HCPCS: 31500; 36415; 36600; 71045; 71250; 76700; 76770; 78580; 80048; 80053; 80061; 80162; 80202; 80305; 81003; 82140; 82375; 82550; 82553; 82805; 82962; 83036; 83605; 83735; 83880; 84100; 84132; 84145; 84153; 84439; 84443; 84478; 84484; 85025; 85379; 86038; 86160; 86705; 86709; 87070; 87340; 93005; 93306; 93970; 94002; 94003; 94640; 94660; 95816; 99291; C1893; C9113; J0692; J1160; J1650; J1815; J1940; J2543; J2704; J3010; J3370; J3475; J3480; J3490; J7060

== ENCOUNTER 2024-01-29 19:36 | Inpatient (IN) | payer MEDICAID ==
[~2024-01-29] VITALS: Ht 170.2 cm; Wt 67.6 kg
[2024-01-29 19:35] VITALS: RESP 26
[~2024-01-29 19:36] MED LIST changes: +AMOX1TAB16 MT; -LOSA1TAB37 MT
[2024-01-29] MEDS ORDERED: NITROGLYCERIN 0.4MG TABLET SL SL PRN (19:45)
[2024-01-29] MEDS ORDERED: NITROGLYCERIN 50MG PREMIX 250 ML IV ONE ×2 (19:45→20:15)
[2024-01-29 19:53] LABS: EOSINOPHILS % 5.4 % (0.0-5.0); HEMOGLOBIN. 12.6 g/dL (14.0-18.0); MEAN CORPUSCULAR HEMOGLOBIN 29.5 pg (28.0-32.0); MEAN CORPUSCULAR HGB CONC 33.2 g/dL (31.0-37.0); MEAN CORPUSCULAR VOLUME 88.9 fL (80.0-94.0); MEAN PLATELET VOLUME 8.7 fl (7.4-10.4); MONOCYTES % 13.5 % (2.0-8.0); NEUTROPHILS % 47.1 % (40.0-76.0); PLATELET 262 x1000/uL (130-400); RED BLOOD CELL COUNT 4.27 mill/uL (4.7-6.1); RED CELL DISTRIBUTION WIDTH 14.8 % (11.6-14.6); WHITE BLOOD COUNT 12.6 x1000/uL (4.5-11.0)
[2024-01-29 19:59] LABS: CHLORIDE 104 mEq/L (98-107); POTASSIUM 4.6 mEq/L (3.5-5.1); SODIUM 139 mEq/L (136-145)
[2024-01-29 20:00] LABS: CALCIUM 8.8 mg/dL (8.7-10.4); CARBON DIOXIDE 27 mEq/L (21-32)
[2024-01-29] MEDS: FUROSEMIDE 40MG/4ML VIAL IV ONE (20:02)
[2024-01-29 20:05] LABS: CREATININE 1.4 mg/dL (0.6-1.3); GLUCOSE 222 mg/dL (70-105); UREA NITROGEN BLOOD 25 mg/dL (9-23)
[2024-01-29 20:06] LABS: PARTIAL THROMBOPLASTIN TIME 24.5 sec (23.4-31.0); PROTHROMBIN TIME 10.8 sec (9.6-11.0)
[2024-01-29] MEDS: NITROGLYCERIN 50MG PREMIX 250 ML IV PRN (20:31)
[2024-01-29 20:37] LABS: TROPONIN I HIGH SENSITIVITY 62 ng/L (3.0-53)
[2024-01-29] MEDS ORDERED: GUAIFENESIN 200MG/10ML SUGAR FREE UDC PO PRN (22:45)
[2024-01-29] MEDS ORDERED: ONDANSETRON HCL 4MG/2ML INJ IV PRN (22:45)
[2024-01-29] MEDS: ENOXAPARIN 80MG/0.8ML SYR SUBCUT SCH (23:45)
[2024-01-30 00:01] LABS: TROPONIN I HIGH SENSITIVITY 65 ng/L (3.0-53)
[2024-01-30 01:00] VITALS: RESP 22
[2024-01-30 05:50] LABS: BASOPHILS % 0.4 % (0.0-2.0); EOSINOPHILS % 0.1 % (0.0-5.0); HEMATOCRIT. 37.6 % (42.0-52.0); HEMOGLOBIN. 12.5 g/dL (14.0-18.0); LYMPHOCYTES % 8.8 % (20.0-50.0); MEAN CORPUSCULAR HEMOGLOBIN 29.3 pg (28.0-32.0); MEAN CORPUSCULAR HGB CONC 33.1 g/dL (31.0-37.0); MEAN CORPUSCULAR VOLUME 88.5 fL (80.0-94.0); MEAN PLATELET VOLUME 8.8 fl (7.4-10.4); MONOCYTES % 9.6 % (2.0-8.0); NEUTROPHILS % 81.1 % (40.0-76.0); PLATELET 206 x1000/uL (130-400); RED BLOOD CELL COUNT 4.25 mill/uL (4.7-6.1); RED CELL DISTRIBUTION WIDTH 14.8 % (11.6-14.6)
[2024-01-30 06:17] LABS: *AMPHETAMINES SCREEN URINE NEGATIVE (NEGATIVE); *BARBITURATES SCREEN URINE NEGATIVE (NEGATIVE); *BENZODIAZEPINES SCREEN URINE NEGATIVE (NEGATIVE); *COCAINE SCREEN URINE NEGATIVE (NEGATIVE); CANNABINOID URINE SCREEN NEGATIVE (NEGATIVE); ECSTASY MDMA SCREEN URINE NEGATIVE (NEGATIVE); METHADONE URINE SCREEN NEGATIVE (NEGATIVE); OPIATES URINE SCREEN NEGATIVE (NEGATIVE); PHENCYCLIDINE URINE SCREEN NEGATIVE (NEGATIVE)
[2024-01-30 06:20] LABS: CREATINE KINASE MB FRACTION 3.3 ng/mL (0.5-3.6)
[2024-01-30 06:21] LABS: ALANINE AMINOTRANSFERASE 112 IU/L (10-49); ALBUMIN 3.7 g/dL (3.2-4.8); ASPARTATE AMINOTRANSFERASE 73 IU/L (<34)
[2024-01-30 06:22] LABS: BILIRUBIN DIRECT 0.2 mg/dL (<=3.0); BILIRUBIN TOTAL 0.5 mg/dL (0.1-1.0); PROTEIN TOTAL 6.5 g/dL (6.0-8.3)
[2024-01-30] MEDS: ASPIRIN 81MG EC TABLET PO SCH (10:56)
[2024-01-30] MEDS: TAMSULOSIN HCL 0.4MG SR CAPSULE PO SCH (10:56)
[2024-01-30] MEDS: CARVEDILOL 3.125 MG TABLET PO SCH (10:56)
[2024-01-30] MEDS: CLOPIDOGREL 75MG TABLET PO SCH (10:57)
[2024-01-30] MEDS: ATORVASTATIN CALCIUM 40MG TABLET PO SCH (10:57)
[2024-01-30 12:00] VITALS: BP 134/66; PULSE 88; RESP 18; TEMP 98
[2024-01-30] MEDS: FUROSEMIDE 40MG/4ML VIAL IVP SCH (14:06)
[2024-01-30 20:00] VITALS: BP 129/57; PULSE 87; RESP 18; TEMP 97.7
[2024-01-31] VITALS (7 sets, daily range): BP systolic 110–141; BP diastolic 47–64; PULSE 74–115; RESP 18–20; TEMP 97.2–98.4; O2SAT 95
[2024-01-31 07:16] LABS: BASOPHILS % 0.8 % (0.0-2.0); EOSINOPHILS % 2.4 % (0.0-5.0); HEMATOCRIT. 33.8 % (42.0-52.0); HEMOGLOBIN. 11.6 g/dL (14.0-18.0); MEAN CORPUSCULAR HEMOGLOBIN 29.5 pg (28.0-32.0); MEAN CORPUSCULAR HGB CONC 34.2 g/dL (31.0-37.0); MEAN CORPUSCULAR VOLUME 86.1 fL (80.0-94.0); MEAN PLATELET VOLUME 8.9 fl (7.4-10.4); NEUTROPHILS % 71.8 % (40.0-76.0); PLATELET 183 x1000/uL (130-400); RED BLOOD CELL COUNT 3.92 mill/uL (4.7-6.1); RED CELL DISTRIBUTION WIDTH 14.5 % (11.6-14.6); WHITE BLOOD COUNT 10.3 x1000/uL (4.5-11.0)
[2024-01-31 07:19] LABS: CALCIUM 8.5 mg/dL (8.7-10.4); POTASSIUM 3.9 mEq/L (3.5-5.1)
[2024-01-31 07:25] LABS: CREATININE 1.2 mg/dL (0.6-1.3)
[2024-01-31] MEDS: IPRATROPIUM/ALBUTEROL 0.5-3(2.5)MG/3ML NEB NEB PRN (07:31)
[2024-01-31] MEDS: FUROSEMIDE 40MG/4ML VIAL IVP SCH (17:56)
[2024-02-01] VITALS (7 sets, daily range): BP systolic 97–110; BP diastolic 45–56; PULSE 67–89; RESP 16–20; TEMP 97.4–98.1; O2SAT 99
[2024-02-01] MEDS: LACTULOSE 20G/30ML UDC PO PRN (13:10)
[2024-02-01] MEDS ORDERED: FURO-151 MT (13:16)
== END 2024-02-01 18:05 | disposition home or self-care (01) | DRG 291 ==
LOC: ER 19:36 → 5WST 21:19 → EDBEDREQTM 21:22 → EDBEDREQ 21:22 → 5WST 01-30 11:12 → 7WST 01-30 12:26
PROVIDERS: ADMIT Internal Medicine; ATTEND Internal Medicine
PROC: 5A09357 Assistance with Respiratory Ventilation, Less than 24 Consecutive Hours, Continuous Positive Airway Pressure (ICD-10-PCS; principal; 2024-01-29)
PROC: 5A09357 Assistance with Respiratory Ventilation, Less than 24 Consecutive Hours, Continuous Positive Airway Pressure (ICD-10-PCS; 2024-01-30)
DX: I11.0 Hypertensive heart disease with heart failure (principal); I50.23 Acute on chronic systolic (congestive) heart failure; J96.01 Acute respiratory failure with hypoxia; N17.9 Acute kidney failure, unspecified; E11.9 Type 2 diabetes mellitus without complications; I25.10 Atherosclerotic heart disease of native coronary artery without angina pectoris; D72.829 Elevated white blood cell count, unspecified; N42.9 Disorder of prostate, unspecified; N13.9 Obstructive and reflux uropathy, unspecified; N40.0 Benign prostatic hyperplasia without lower urinary tract symptoms
CPT/HCPCS: 36415; 71045; 80048; 80076; 80305; 82550; 82553; 82803; 82962; 83880; 84484; 85025; 93005; 94640; 94660; 99285; J1650; J1940; J3490